=== PATIENT | male | born 1950 | race Caucasian/White ===

== ENCOUNTER 2018-09-14 17:48 | Inpatient (IN) | payer OTHER ==
[~2018-09-14] VITALS: Ht 185.4 cm; Wt 108.9 kg
--- NOTE | ~2018-09-14 | P ---
[facility] [place] [address] PROCEDURE REPORT Name: ROOPA MICHELLE Room #: 204-P [facility] IN M.R.#: [id number] Admission: 09/14/18 Attend Phys: Pradeep No MD Discharge: Date of : 48 Report #: [id number] THIS REPORT FOR: //name// CC: Pradeep Malone DATE OF SERVICE: 09/15/2018 UPGRADE TO A BI-V ICD PREOPERATIVE DIAGNOSES: 1. Ischemic cardiomyopathy. 2. Coronary artery disease, status post prior myocardial infarction. 3. Complete heart block status post [employer] biventricular pacemaker. 4. Sustained monomorphic ventricular tachycardia. INDICATIONS FOR THE PROCEDURE: The patient is a 68-year-old male with history of coronary artery disease status post VA, status post [employer] Bi-V pacemaker implantation for complete heart block back in 2016. 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 He is here for upgrade to a biventricular ICD. ANESTHESIA: The patient underwent MAC anesthesia with no anesthesia related complications. DESCRIPTION OF PROCEDURE: The patient underwent informed consent. We discussed the details of the procedure including the risks, which include but not limited to bleeding, infection, vascular damage, cardiac perforation and pneumothorax. He understood these risks and is willing to proceed. The patient was brought to the EP laboratory in a fasting and sedated state, prepped and draped in sterile fashion. He underwent a venogram to determine if there was patency of the left axillary vein, which there was. Next, the patient was prepped and draped in sterile fashion. He had received IV antibiotics. I injected lidocaine at the incision site. Incision was made, the chronic pocket was entered. I obtained access to the left axillary vein x 1 using the extrathoracic approach with sheath positioned using the modified Seldinger technique. Next, under fluoroscopy, the RV lead was positioned in the right ventricular apex with adequate pacing and sensing thresholds. The lead was sutured to the prepectoral fascia, connected to the ICD and then I connected the atrial and LV leads to the new biventricular ICD. The old [employer] pace sense lead, which was placed in 2015 was capped and placed in the pocket. The pocket was irrigated with vancomycin and then the pocket was closed in 2 layers using 2-0 for the deep layer, 3-0 for the mid layer and surgical glue was placed to the outer skin layer. The patient awoke neurologically and hemodynamically intact. No complications and no significant bleeding. [address] [address] PROCEDURE REPORT Name: ROOPA MICHELLE Room #: 204-P [facility] IN .R.#: [id number] Admission: 09/14/18 Attend Phys: Pradeep No MD Discharge: Date of : 48 Report #: [id number] The explanted device was a [employer] model #[id number], serial #[id number], which was originally implanted in 12/2015. The other leads were also placed at that same time. The newly implanted generator was a [employer] model #[id number], serial #[id number]. The capped RV lead was a [employer] model #2088TC, 58 cm, serial # [id number] originally implanted in 12/2015 as well. The newly implanted ICD lead was a [employer] model #7122Q, 58 cm, serial #[id number]. The atrial lead was a [employer], model #2088TC, 52 cm, serial #[id number] and the LV lead was a [employer] model, #1258, 86 cm. This is a bipolar lead, serial number was a #[id number] implanted in 12/2015. The RV lead demonstrated no underlying R waves. The impedance was 810 ohms, pacing threshold 0.5 volts at 0.5 milliseconds. The RA lead demonstrated a P-wave of 3.8 millivolts, pacing impedance 410 ohms and pacing threshold 0.75 volts at 0.5 milliseconds. The LV lead demonstrated a pacing impedance of 450 ohms and the pacing threshold of 1 volt at 1.5 milliseconds. The device was programmed to the DDDR 60-130 mode. The device was programmed with a VT monitor zone from 150-180 beats per minute. The VT zone was set at 180-220 beats per minute with 3 rounds ramp followed by 3 rounds of burst followed by max output shocks. VF zone was set at greater than 220 beats per minute with ATP while charging followed by max output shocks. CONCLUSIONS: 1. Successful upgrade to a biventricular ICD. 2. Satisfactory atrial, right ventricular and left ventricular pacing and sensing thresholds. By: [id number] Pradeep oN MD /nt
[2018-09-14 18:06] VITALS: BP 129/69
[2018-09-14 18:46] LABS: ABSOLUTE NEUTROPHILS 5.3 thou/uL (1.4-8.2); BASOPHILS 0.9 % (0.0-2.0); EOSINOPHILS 3.3 % (0.0-3.0); HEMATOCRIT 39.9 % (42.0-52.0); HEMOGLOBIN 13.6 gm/dL (14.0-18.0); LYMPHOCYTES 23.1 % (24.0-44.0); MCH 31.3 pg (26.0-34.0); MCV 91.9 fL (80.0-100.0); MONOCYTES 8.4 % (1.0-8.0); PLATELET COUNT 229 thou/uL (150-400); POLYS 64.3 % (36.0-66.0); RBC 4.34 mil/uL (4.50-6.00); RDW 14.4 % (10.5-14.5); WBC 8.3 thou/uL (4.0-11.0)
[2018-09-14 18:52] LABS: INR 2.7; PROTIME 28.1 Seconds (9.3-11.4)
[2018-09-14 18:56] LABS: ALBUMIN 4.2 g/dL (3.4-5.0); CALCIUM 9.5 mg/dL (8.5-10.1); CREATININE 1.6 mg/dL (0.7-1.3); POTASSIUM 4.2 mmol/L (3.5-5.1); TOTAL BILIRUBIN 0.6 mg/dL (<0.1-1.0); TOTAL PROTEIN 8.3 g/dL (6.4-8.2)
[2018-09-14 19:53] VITALS: BP 136/74
[2018-09-15] VITALS (8 sets, daily range): BP systolic 109–158; BP diastolic 56–94
--- NOTE | 2018-09-15 03:05 | NUR ---
ASSUMED PT CARE AT 1900. PT A/OX4, VITAL SIGNS STABLE, ASSESSMENT CHARTED. NO COMPLAINTS OF PAIN/CHEST PAIN. NO EPISODES OF VENTRICULAR TACHYCARDIA NOTED ON THE MONITOR. PT NPO AFTER MIDNIGHT FOR PROCEDURE IN AM. PT RESTED WELL THROUGH THE NIGHT. CONSENT SIGNED. PROGRESSING TOWARD PLAN OF CARE. WILL CONTINUE TO MONITOR.
[2018-09-15] MEDS ORDERED: AMLODIPINE BESY10 MG PO (04:16)
[2018-09-15] MEDS ORDERED: GLYBURIDE 2.52.5 MG PO (04:33)
[2018-09-15] MEDS ORDERED: HYDROCHLOROTHIA25 M2 PO (04:33)
[2018-09-15] MEDS ORDERED: SYNTHROID75 MCG PO (04:34)
[2018-09-15] MEDS ORDERED: LISINOPRIL20 MG PO (04:35)
[2018-09-15] MEDS ORDERED: METFORMIN HCL500 MG PO (04:35)
[2018-09-15] MEDS ORDERED: PIOGLITAZONE15 MG PO (04:36)
[2018-09-15] MEDS ORDERED: KLOR-CON 1010 MEQ PO (04:38)
[2018-09-15] MEDS ORDERED: PRAVACHOL40 MG PO (04:39)
[2018-09-15] MEDS ORDERED: SORINE 80 MG TA80 M1 PO (04:40)
[2018-09-15] MEDS ORDERED: COUMADIN 5 MG TA5 M1 PO (04:44)
[2018-09-15 07:39] LABS: CALCIUM 9.4 mg/dL (8.5-10.1); CREATININE 1.4 mg/dL (0.7-1.3); POTASSIUM 4.4 mmol/L (3.5-5.1)
[2018-09-15 07:42] LABS: INR 1.6; PROTIME 16.9 Seconds (9.3-11.4)
--- NOTE | 2018-09-15 07:51 | EKG ---
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 RUIZ : 1950 Requested By: Aidee Sandoval Order Number: [id number] MD: Terrence Vivas Measurements Intervals [place] Rate: 72 P: 0 MA: 160 QRS: -62 QRSD: 140 T: 106 QT: 455 QTc: 499 Interpretive Statements Atrial-sensed ventricular-paced rhythm No further analysis attempted due to paced rhythm No previous ECG available for comparison Electronically Signed On 09-15-2018 7:50:47 CDT by Terrence Vivas [email or web address] <ELECTRONICALLY SIGNED> By: Terrence Vivas MD, [facility] 09/15/18 0750 54 54 Terrence Vivas MD, [facility] /EPI
--- NOTE | 2018-09-15 09:26 | 2DMMODE ---
[facility] [place] [employer] [place] [address] 2 D/M-MODE ECHOCARDIOGRAM Name: ROOPA MICHELLE Room #: 204-P ADM IN M.R.#: [id number] Admission: 09/14/18 Attend Phys: Pradeep No Discharge: Date of : 48 Date of Service: 09/15/18 0926 Report #: [id number] THIS REPORT FOR: //name// APPROVED REPORT Study performed: 09/15/2018 08:32:22 EXAM: Comprehensive 2D, Doppler, and color-flow Echocardiogram Patient Location: Echo lab Room #: [facility] Status: routine BSA: 2.33 HR: 72 bpm BP: 127/79 mmHg Rhythm: Pacemaker Other Information Study Quality: Good Indications Diabetes Dyspnea Pacemaker CAD Cardiomyopathy Hypertension/HDD 2D Dimensions IVSd: 12.84 (7-11mm) LVDd: 55.46 mm PWd: 15.05 (7-11mm) LVDs: 41.14 (25-40mm) IVC: 24.00 mm Tricuspid Valve TR Peak Mark.: 3.65 m/s TR Peak Gr.: 53.17 mmHg PA Pressure: 63.00 mmHg Left Ventricle The left ventricle is normal size. Mild concentric left ventricular hypertrophy. Left ventricular systolic function is borderline. LVEF is 45-50%. Right Ventricle [facility] [place] [employer] [place] [address] 2 D/M-MODE ECHOCARDIOGRAM Name: ROOPA MICHELLE Room #: 204-P ADM IN M.R.#: [id number] Admission: 09/14/18 Attend Phys: Pradeep No Discharge: Date of : 48 Date of Service: 09/15/18 0926 Report #: [id number] The right ventricle is normal size. The right ventricular systolic function is normal. Pacemaker lead is present in the right ventricle. Atria Left atrium is dilated. Right atrium is borderline dilated. Pacemaker lead is present in the right atrium. Aortic Valve The aortic valve is normal in structure. No aortic regurgitation is present. There is no aortic valvular stenosis. Mitral Valve The mitral valve is normal in structure. Mild mitral regurgitation. No evidence of mitral valve stenosis. Tricuspid Valve The tricuspid valve is normal in structure. There is mild tricuspid regurgitation. Estimated PAP 63 mmHg. There is moderate pulmonary hypertension. Pulmonic Valve The pulmonary valve is normal in structure. Great Vessels The aortic root is normal in size. IVC is dilated and collapses >50% with inspiration. Pericardium There is no pericardial effusion. <Conclusion> The left ventricle is normal size. LVEF is 45-50%. The right ventricular systolic function is normal. Pacemaker lead is present in the right ventricle. Left atrium is dilated. Right atrium is borderline dilated. Pacemaker lead is present in the right atrium. The aortic valve is normal in structure. The mitral valve is normal in structure. Mild mitral regurgitation. The tricuspid valve is normal in structure. There is mild tricuspid regurgitation. Estimated PAP 63 mmHg. There is moderate pulmonary hypertension. [facility] [address] [place] [address] 2 D/M-MODE ECHOCARDIOGRAM Name: ROOPA MICHELLE Room #: 204-P ADM IN M.R.#: [id number] Admission: 09/14/18 Attend Phys: Pardeep No Discharge: Date of : 48 Date of Service: 09/15/18925 Report #: [id number] The pulmonary valve is normal in structure. There is no pericardial effusion. <ELECTRONICALLY SIGNED> By: Ernesto Al MD 09/15/18925 5 5 Ernesto Al MD /INF
[2018-09-15] MEDS ORDERED: COUMADIN 2.5MG2.5 M1 PO (14:30)
[2018-09-15] MEDS ORDERED: SOTALOL 120 MG120 MG PO (15:59)
[2018-09-16 00:57] VITALS: BP 119/73
[2018-09-16 04:40] VITALS: BP 125/74
--- NOTE | 2018-09-16 07:39 | NUR ---
pt resting quietly in bed thru the noc, vss, prn pain med given for incisional pain, left chest incision with dermabond, will cont to monitor.
[2018-09-16 08:45] VITALS: BP 146/73
[2018-09-16 09:30] VITALS: BP 146/73
[2018-09-16 09:45] VITALS: BP 146/73
--- NOTE | 2018-09-16 10:38 | NUR ---
PT DISCHARGE INSTRUCTIONS REVIEWED WITH HIM AND . PIV X2 REMOVED. DENIES QUESTIONS. RX, EDUCATION MATERIALS AND DISCHARGE INSTRUCTIONS GIVEN. PT AMBULATED WITH AND COLLECTION TECHNICIAN TO EXIT.
== END 2018-09-16 10:34 | disposition home or self-care (01) | DRG 227 ==
LOC: 2N 17:48
PROVIDERS: Nurse Practitioner; ADMIT Internal Medicine Cardiovascular Disease
PROC: 0JH609Z Insertion of Cardiac Resynchronization Defibrillator Pulse Generator into Chest Subcutaneous Tissue and Fascia, Open Approach (ICD-10-PCS; principal; 2018-09-15)
PROC: 02HK3KZ Insertion of Defibrillator Lead into Right Ventricle, Percutaneous Approach (ICD-10-PCS; principal; 2018-09-15)
PROC: 0JPT0PZ Removal of Cardiac Rhythm Related Device from Trunk Subcutaneous Tissue and Fascia, Open Approach (ICD-10-PCS; principal; 2018-09-15)
DX: I47.2 Ventricular tachycardia (principal); I44.2 Atrioventricular block, complete; I25.5 Ischemic cardiomyopathy; I25.10 Atherosclerotic heart disease of native coronary artery without angina pectoris; E11.9 Type 2 diabetes mellitus without complications; I10 Essential (primary) hypertension; E78.00 Pure hypercholesterolemia, unspecified; E78.2 Mixed hyperlipidemia; I48.0 Paroxysmal atrial fibrillation; E07.9 Disorder of thyroid, unspecified; Z79.899 Other long term (current) drug therapy; I25.2 Old myocardial infarction; Z95.0 Presence of cardiac pacemaker; Z87.891 Personal history of nicotine dependence; Z95.1 Presence of aortocoronary bypass graft